=== PATIENT | female | born 1970 | race Two or more races ===

== ENCOUNTER 2016-12-21 00:48 | Observation (INO) | payer MEDICAID ==
[~2016-12-21] VITALS: Ht 165.1 cm; Wt 100.7 kg
[2016-12-21] VITALS (7 sets, daily range): BP systolic 114–149; BP diastolic 60–84
[2016-12-21 01:44] LABS: Basophils # (auto) 0 uL; Basophils % (auto) 0.5 % (0.0-2.0); DEFINITIVE VIEW TRANSMISSION; Eosinophils # (auto) 0.1 uL; Eosinophils % (auto) 1.2 % (0.0-7.0); Hematocrit 22.9 % (36.0-46.0); Lymphocytes # (auto) 3.6 uL; Lymphocytes % (auto) 41.8 % (10.0-50.0); Mean Corpuscular Hgb Conc. 29.1 g/dL (32.0-36.0); Mean Corpuscular Volume 55.2 fL (80.0-100.0); Mean Platelet Volume 9.8 fL (7.4-10.4); Monocytes # (auto) 0.5 uL; Monocytes % (auto) 5.3 % (0.0-12.0); Neutrophils # (auto) 4.4 uL; Neutrophils % (auto) 51.2 % (37.0-80.0); Platelet Count (auto) 489 10^3/uL (140-450); White Blood Cell 8.6 10^3/uL (4.4-10.8)
[2016-12-21 01:45] LABS: Red Cell Distribution Width 23.2 % (11.6-16.0)
[2016-12-21 01:46] LABS: Albumin 3.7 g/dL (3.4-5.0); Alkaline Phosphatase 74 U/L (45-117); Anion Gap 13 (5-15); Aspartate Aminotransferase 20 U/L (15-37); BUN/Creatinine Ratio 12.1; Bilirubin, Total 0.4 mg/dL (0.2-1.0); Blood Urea Nitrogen 11 mg/dL (7-18); Calcium 8.8 mg/dL (8.5-10.1); Carbon Dioxide 23 mmol/L (21-32); Chloride 106 mmol/L (98-107); GFR African American 85 mL/min; GFR Non-African American 70 mL/min; Glucose 129 mg/dL (74-106); Potassium 3.2 mmol/L (3.5-5.1); Sodium 142 mmol/L (136-145); Total Protein 7.7 g/dL (6.4-8.2)
[2016-12-21 01:48] LABS: Hemoglobin 6.7 g/dL (12.2-16.2)
[2016-12-21 01:51] LABS: B-Type Natriuretic Peptide 15.8 pg/mL (0-100); Temperature: 21.1 C (20.0-25.0)
[2016-12-21 02:27] LABS: Anisocytosis Moderate; Hypochromia Marked; Microcytosis Marked; Ovalocytes FEW; Platelet Estimate Increased; Polychromasia Slight; Stomatocytes Few
[2016-12-21 12:45] LABS: Hematocrit 26.6 % (36.0-46.0)
== END 2016-12-21 15:43 | disposition home or self-care (01) | DRG 663 ==
LOC: ER 00:54 → OVERFLOW 02:17 → ER 15:43
PROVIDERS: ADMIT Emergency Medicine; ATTEND Emergency Medicine
DX: D64.9 Anemia, unspecified (principal); F32.9 Major depressive disorder, single episode, unspecified; D25.9 Leiomyoma of uterus, unspecified; N93.8 Other specified abnormal uterine and vaginal bleeding
CPT/HCPCS: 36415; 71020; 80053; 83735; 83880; 84443; 84484; 84702; 85014; 85018; 85025; 85379; 86850; 86870; 86900; 86901; 86902; 86905; 93005; 99285; G0378; J7050; P9016; 86920; 86922

== ENCOUNTER 2020-02-29 02:36 | Emergency (ER) | payer MEDICAID ==
[~2020-02-29] VITALS: Ht 165.1 cm; Wt 108.9 kg
[2020-02-29 02:49] VITALS: BP 148/94
== END 2020-02-29 07:53 | disposition left against medical advice (07) ==
LOC: ER 02:36
DX: S80.861A Insect bite (nonvenomous), right lower leg, initial encounter (principal); Z53.21 Procedure and treatment not carried out due to patient leaving prior to being seen by health care provider; W57.XXXA Bitten or stung by nonvenomous insect and other nonvenomous arthropods, initial encounter; Y93.89 Activity, other specified; Y92.89 Other specified places as the place of occurrence of the external cause; Y99.8 Other external cause status

== ENCOUNTER 2021-02-01 09:18 | Emergency (ER) | payer MEDICAID ==
[~2021-02-01] VITALS: Ht 165.1 cm; Wt 88.5 kg
[2021-02-01 10:06] VITALS: BP 156/68
[2021-02-01] MEDS ORDERED: IBUPROFEN 600 MG TAB PO ONE (12:15)
== END 2021-02-01 12:22 | disposition home or self-care (01) ==
LOC: ER 09:18
DX: S61.217A Laceration without foreign body of left little finger without damage to nail, initial encounter (principal); M79.641 Pain in right hand; M79.642 Pain in left hand; Z88.2 Allergy status to sulfonamides; Y04.2XXA Assault by strike against or bumped into by another person, initial encounter; Y93.89 Activity, other specified; Y92.89 Other specified places as the place of occurrence of the external cause; Y99.8 Other external cause status
CPT/HCPCS: 73130

== ENCOUNTER 2021-09-26 19:16 | Emergency (ER) | payer MEDICAID ==
[~2021-09-26] VITALS: Ht 165.1 cm; Wt 93.9 kg
[2021-09-27 04:29] VITALS: BP 122/80
== END 2021-09-27 04:42 | disposition home or self-care (01) ==
LOC: ER 19:17
DX: J06.9 Acute upper respiratory infection, unspecified (principal); R50.9 Fever, unspecified; E66.9 Obesity, unspecified; Z68.34 Body mass index [BMI] 34.0-34.9, adult; Z20.822 Contact with and (suspected) exposure to COVID-19
CPT/HCPCS: 36415; 87426

== ENCOUNTER 2024-05-05 01:55 | Emergency (ER) | payer MEDICAID, OTHER ==
[~2024-05-05] VITALS: Ht 165.1 cm; Wt 85.9 kg
[2024-05-05] MEDS: KETOROLAC TROMETH 30 MG/ML 1ML VIAL IM ONE (04:04)
[2024-05-05] MEDS: CYCLOBENZAPRINE HCL 10 MG TAB PO ONE (04:04)
[2024-05-05 04:09] VITALS: BP 152/55; PULSE 83; RESP 19; TEMP 99.7; O2SAT 99
[2024-05-05] MEDS ORDERED: CYCL-839 PO (04:47)
== END 2024-05-05 04:57 | disposition home or self-care (01) ==
LOC: ER 01:55
DX: S39.012A Strain of muscle, fascia and tendon of lower back, initial encounter (principal); M54.32 Sciatica, left side; F32.9 Major depressive disorder, single episode, unspecified; Z88.2 Allergy status to sulfonamides; X58.XXXA Exposure to other specified factors, initial encounter; Y93.89 Activity, other specified; Y92.89 Other specified places as the place of occurrence of the external cause; Y99.8 Other external cause status
CPT/HCPCS: 72100; 73502; 96372; 99284; J1885